=== PATIENT | female | born 1950 ===

== ENCOUNTER 2017-04-07 07:37 | Emergency (ER) | payer OTHER ==
[2017-04-07 07:53] VITALS: BP 119/76; PULSE 109; RESP 18; TEMP 98.3; O2SAT 99
[2017-04-07] MEDS ORDERED: Sodium Chloride 0.9% 1,000 ML IV STA ×2 (08:01→11:18)
--- NOTE | 2017-04-07 08:07 | ED PDOC ---
HPI: Abdomen Time Seen by Provider: 04/07/17 07:40 Chief Complaint (Nursing): Abdominal Pain Chief Complaint (Provider): Epigastric Pain History Per: Patient History/Exam Limitations: no limitations Onset/Duration Of Symptoms: Days (x1) Current Symptoms Are (Timing): Still Present Additional Complaint(s): Iwona Parks is a 66 year old female with a past surgical history of a cholecystectomy presenting to the ED for an evaluation of epigastric abdominal pain associated with nausea and vomiting occurring since last night. The patient reports shes unable to tolerate PO and her symptoms are associated with diarrhea. She denies any blood in her stool or fever. PMD: Barber Amador MD Past Medical History Reviewed: Historical Data, Nursing Documentation, Vital Signs Vital Signs: Last Vital Signs Temp 98.3 F 04/07/17 07:46 Pulse 109 H 04/07/17 07:46 Resp 18 04/07/17 07:46 BP 119/76 04/07/17 07:46 Pulse Ox 99 04/07/17 11:06 - Medical History PMH: Osteoporosis - Surgical History Surgical History: Cholecystectomy - Family History Family History: States: Unknown Family Hx - Social History Current smoker - smoking cessation education provided: No Ex-Smoker (has not smoked in the last 12 months): No Alcohol: None Drugs: Denies - Home Medications Home Medications: Ambulatory Orders Medication Instructions Recorded traMADol [Ultram] 50 mg PO BID #14 tab 02/02/14 Famotidine [Pepcid] 20 mg PO Q12 #20 tab 04/07/17 Ondansetron [Zofran] 4 mg PO Q8H #10 tab 04/07/17 - Allergies Allergies/Adverse Reactions: Allergies Allergy/AdvReac Type Severity Reaction Status Date / Time No Known Allergies Allergy Verified 02/02/14 14:17 Review of Systems ROS Statement: Except As Marked, All Systems Reviewed And Found Negative Constitutional: Negative for: Fever Gastrointestinal: Positive for: Nausea, Vomiting, Abdominal Pain (epigastric pain), Diarrhea, Other (unable to tolerate PO). Negative for: Hematochezia Physical Exam - Reviewed Nursing Documentation Reviewed: Yes Vital Signs Reviewed: Yes - Physical Exam Appears: Positive for: Non-toxic, No Acute Distress Head Exam: Positive for: ATRAUMATIC, NORMOCEPHALIC Skin: Positive for: Normal Color, Warm, Dry Eye Exam: Positive for: Normal appearance, EOMI ENT: Positive for: Pharynx Is (mucous membranes dry) Neck: Positive for: Normal, Painless ROM Cardiovascular/Chest: Positive for: Chest Non Tender, Tachycardia Respiratory: Positive for: Normal Breath Sounds. Negative for: Respiratory Distress Gastrointestinal/Abdominal: Positive for: Soft, Tenderness (epigastric tenderness) Back: Positive for: Normal Inspection Extremity: Positive for: Normal ROM. Negative for: Deformity Neurologic/Psych: Positive for: Alert, Oriented (x3). Negative for: Motor/ Sensory Deficits - Laboratory Results Result Diagrams: 04/07/17 08:30 04/07/17 08:23 - ECG O2 Sat by Pulse Oximetry: 99 (RA) Pulse Ox Interpretation: Normal - Progress Re-evaluation Time: 13:13 Condition: Improved Medical Decision Making Medical Decision Making: Time: 07:40 Impression: Epigastric tenderness associated with nausea, vomiting, and diarrhea Plan: * ED EKG * CMP * CBC (with differential) * NS 1,000 ml IV 250 mls/hr * Pepcid 20 mg IVP * Zofran 4 mg IVP * Reevaluation 11:05 pt vomiting. will administer Zofran and fluids. Scribe Attestation: Documented by Mayte Lawson, acting as a scribe for Mor Castaneda MD. Provider Scribe Attestation: All medical record entries made by the Scribe were at my direction and personally dictated by me. I have reviewed the chart and agree that the record accurately reflects my personal performance of the history, physical exam, medical decision making, and the department course for this patient. I have also personally directed, reviewed, and agree with the discharge instructions and disposition. Disposition - Clinical Impression Clinical Impression: Gastritis - Patient ED Disposition Is Patient to be Admitted: No Counseled Patient/Family Regarding: Studies Performed, Diagnosis, Need For Followup, Rx Given - Disposition Disposition: Routine/Home Disposition Time: 13:13 Condition: FAIR Prescriptions: Famotidine [Pepcid] 20 mg PO Q12 #20 tab Ondansetron [Zofran] 4 mg PO Q8H #10 tab Instructions: Gastritis (ED) Forms: [facility] (Burmese) Print Language: KYRGYZ
[2017-04-07 08:33] LABS: BASO % 0.2 % (0.0-2.0); EOS % 0.4 % (0.0-4.0); HEMATOCRIT 51.9 % (34.0-47.0); LYMPH # 0.3 K/uL (1.0-4.3); LYMPH % 3.4 % (20.0-40.0); MEAN CELL VOLUME 94.5 fl (81.0-99.0); MEAN CORPUSCULAR HGB CONC 32.8 g/dL (33.0-37.0); MEAN PLATELET VOLUME 9.2 fl (7.2-11.7); MONO # 0.4 K/uL (0.0-0.8); MONO % 5.2 % (0.0-10.0); NEUT # 7.7 K/uL (1.8-7.0); NEUT % 90.8 % (50.0-75.0); NRBC % 0.1 % (0.0-0.0); PLATELET COUNT 299 K/uL (130-400); WHITE BLOOD COUNT 8.5 K/uL (4.8-10.8)
--- NOTE | 2017-04-07 08:40 | CARD ---
APPROVED REPORT EKG Measurement Heart [id number] <Conclusion> Sinus tachycardia Left axis deviation Inferior infarct, age undetermined Abnormal ECG
[2017-04-07 08:49] LABS: ALB/GLOB RATIO 1.2 (1.0-2.1); BILIRUBIN,TOTAL 0.7 mg/dl (0.2-1.3); CALCIUM 9.2 mg/dL (8.4-10.2); CARBON DIOXIDE 22 mmol/L (22-30); CHLORIDE 108 mmol/L (98-107); GFR AFRICAN-AMERICAN > 60; GLUCOSE,RANDOM 154 mg/dL (65-105); SODIUM 144 mmol/l (132-148); TOTAL PROTEIN 7.6 G/DL (6.3-8.2)
[2017-04-07 08:51] LABS: ALKALINE PHOSPHATASE 162 U/L (38-126); ALT/SGPT 42 U/L (9-52); AST/SGOT 31 U/L (14-36); BLOOD UREA NITROGEN 16 mg/dl (7-17); POTASSIUM 4.6 MMOL/L (3.6-5.0)
[2017-04-07 11:03] LABS: NEUTROPHIL 83 % (42-75); TOTAL CELLS COUNTED 100
== END 2017-04-07 13:22 | disposition home or self-care (01) ==
LOC: H.ER 07:37
DX: K29.70 Gastritis, unspecified, without bleeding (principal)
CPT/HCPCS: 80053; 84484; 85025; 93005; 96374; 96375; 96376; 99282; J2405; J2765; J7040

== ENCOUNTER 2018-04-10 13:58 | Emergency (ER) | payer OTHER ==
[2018-04-10 14:22] VITALS: RESP 20; O2SAT 98
[2018-04-10] MEDS ORDERED: Alum-Mag Hydrox-Simethicone Susp (30 mL) PO STA (15:33)
[2018-04-10 15:41] LABS: BASO % 0.2 % (0.0-2.0); EOS % 0.2 % (0.0-4.0); HEMOGLOBIN 16.1 g/dL (12.0-16.0); LYMPH # 0.5 K/uL (1.0-4.3); MEAN CELL VOLUME 93.9 fl (81.0-99.0); MEAN CORPUSCULAR HEMOGLOBIN 30.4 pg (27.0-31.0); MEAN CORPUSCULAR HGB CONC 32.4 g/dL (33.0-37.0); MEAN PLATELET VOLUME 9.5 fl (7.2-11.7); MONO # 0.4 K/uL (0.0-0.8); MONO % 3.4 % (0.0-10.0); NEUT % 92.2 % (50.0-75.0); NRBC % 0.2 % (0.0-0.0); PLATELET COUNT 331 K/uL (130-400); RED CELL DISTRIBUTION WIDTH 14.6 % (11.5-14.5); WHITE BLOOD COUNT 11.9 K/uL (4.8-10.8)
[2018-04-10] MEDS ORDERED: Alum-Mag Hydrox-Simethicone Susp (30 mL) ONE (15:42)
[2018-04-10 16:36] LABS: ALB/GLOB RATIO 1.2 (1.0-2.1); ALBUMIN 4.3 g/dL (3.5-5.0); ALT/SGPT 54 U/L (9-52); AST/SGOT 71 U/L (14-36); BLOOD UREA NITROGEN 18 mg/dl (7-17); CALCIUM 9.1 mg/dL (8.4-10.2); GFR NON-AFRICAN AMERICAN > 60; LIPASE 22 U/L (23-300)
--- NOTE | 2018-04-10 17:26 | ED PDOC ---
HPI: Abdomen Time Seen by Provider: 04/10/18 14:25 Chief Complaint (Nursing): Abdominal Pain Chief Complaint (Provider): epigastric pain since 4 am History Per: Patient History/Exam Limitations: no limitations Onset/Duration Of Symptoms: Hrs Outside of [place] travel?: No Current Symptoms Are (Timing): Still Present Location Of Pain/Discomfort: Epigastric Quality Of Discomfort: Burning Associated Symptoms: Nausea, Vomiting, Loss Of Appetite. denies: Fever, Chills, Back Pain, Chest Pain, Constipation, Urinary Symptoms Exacerbating Factors: None Alleviating Factors: None Additional Complaint(s): 67 yo female with no medical problems presents for evaluation of epigastric pain since 4am. Pt states she has had similar in the past. Pt states that she was seen in ER for the last last year and felt much better after medications. PT was given pepcid and zofran at that time. PT reports loss stool which is normal for her. PT denies fever/chills. Denies chest pain, SOB. PT states she had last physical exam 2 months ago. Past Medical History Reviewed: Historical Data, Nursing Documentation, Vital Signs Vital Signs: Last Vital Signs Temp 97.8 F 04/10/18 14:18 Pulse 110 H 04/10/18 14:18 Resp 20 04/10/18 14:18 BP Pulse Ox 98 04/10/18 14:18 - Medical History PMH: Osteoporosis - Surgical History Surgical History: Cholecystectomy - Family History Family History: States: Unknown Family Hx - Living Arrangements Living Arrangements: With Family - Home Medications Home Medications: Ambulatory Orders Medication Instructions Recorded traMADol [Ultram] 50 mg PO BID #14 tab 02/02/14 Famotidine [Pepcid] 20 mg PO Q12 #20 tab 04/07/17 Ondansetron [Zofran] 4 mg PO Q8H #10 tab 04/07/17 Famotidine [Pepcid] 20 mg PO BID #28 tab 04/10/18 - Allergies Allergies/Adverse Reactions: Allergies Allergy/AdvReac Type Severity Reaction Status Date / Time No Known Allergies Allergy Verified 04/10/18 14:18 Review of Systems ROS Statement: Except As Marked, All Systems Reviewed And Found Negative Constitutional: Negative for: Fever, Chills Cardiovascular: Negative for: Chest Pain, Orthopnea Respiratory: Negative for: Cough, Shortness of Breath Gastrointestinal: Positive for: Nausea, Vomiting, Abdominal Pain. Negative for: Diarrhea, Constipation, Melena, Hematochezia, Rectal Pain Physical Exam - Reviewed Nursing Documentation Reviewed: Yes Vital Signs Reviewed: Yes - Physical Exam Appears: Positive for: Well, Non-toxic, No Acute Distress Head Exam: Positive for: ATRAUMATIC, NORMAL INSPECTION, NORMOCEPHALIC Skin: Positive for: Normal Color, Warm, DRY Eye Exam: Positive for: Normal appearance ENT: Positive for: Normal ENT Inspection Neck: Positive for: Normal, Painless ROM Cardiovascular/Chest: Positive for: Regular Rate, Rhythm Respiratory: Positive for: CNT, Normal Breath Sounds Gastrointestinal/Abdominal: Positive for: Normal Exam, Soft, Tenderness (Epigas tric ) Back: Positive for: Normal Inspection Extremity: Positive for: Normal ROM Neurologic/Psych: Positive for: Alert, Oriented - Laboratory Results Result Diagrams: 04/10/18 15:30 04/10/18 15:50 - ECG O2 Sat by Pulse Oximetry: 98 Pulse Ox Interpretation: Normal Disposition - Clinical Impression Clinical Impression: Gastritis - Patient ED Disposition Is Patient to be Admitted: No Counseled Patient/Family Regarding: Diagnosis, Need For Followup, Rx Given - Disposition Disposition: Routine/Home Disposition Time: 17:28 Condition: GOOD Prescriptions: Famotidine [Pepcid] 20 mg PO BID #28 tab Instructions: Gastritis (DC)
[2018-04-10 17:32] VITALS: TEMP 98
[2018-04-10 17:53] VITALS: BP 110/70; PULSE 74
[2018-04-10 20:06] LABS: BANDS 4 % (0-2); EOSINOPHIL 1 % (0-7); LYMPHOCYTE 4 % (20-50); MONOCYTE 4 % (0-10); NEUTROPHIL 87 % (42-75); TOTAL CELLS COUNTED 100
[2018-04-10 20:07] LABS: PLATELET ESTIMATE NORMAL (NORMAL)
[2018-04-10 20:08] LABS: TOXIC GRANULATION PRESENT
--- NOTE | 2018-04-11 06:25 | CARD ---
APPROVED REPORT Date of service: 04/10/2018 EKG Measurement Heart [id number] <Conclusion> Sinus tachycardia Inferior infarct, age undetermined Abnormal ECG
== END 2018-04-10 17:52 | disposition home or self-care (01) ==
LOC: H.ER 13:58
DX: K29.70 Gastritis, unspecified, without bleeding (principal)
CPT/HCPCS: 80053; 83690; 85025; 93005; 96374; 96375; 99284; J2405